=== PATIENT | female | born 1995 | race Caucasian/White ===

== ENCOUNTER 2019-02-27 12:09 | Emergency (ER) | payer MEDICAID ==
[~2019-02-27] VITALS: Ht 157.5 cm; Wt 68.0 kg
[~2019-02-27 12:09] MED LIST: DIPH25CA83 PO; PERM60CR19 TP
[2019-02-27] MEDS ORDERED: normal saline 1000ML IV soln IVB ONE (12:55)
[2019-02-27] MEDS ORDERED: ondansetron/PF 4mg/2ml inj IV ONE (12:55)
[2019-02-27 12:56] VITALS: BP 96/70
[2019-02-27 12:58] LABS: BASOPHILS % (AUTO) 0.3 % (0-1); EOSINOPHILS % (AUTO) 0.1 % (0-6); HEMATOCRIT 43.6 % (35.0-45.0); HEMOGLOBIN 15.4 g/dl (12.0-16.0); LYMPHOCYTES % (AUTO) 10.1 % (21-51); MEAN CORPUSCULAR HEMOGLOBIN 32.4 PG (27.0-31.0); MEAN CORPUSCULAR HGB CONC 35.2 g/dL (33.0-36.5); MEAN CORPUSCULAR VOLUME 91.9 FL (78-98); MEAN PLATELET VOLUME 10.1 FL (7.4-10.4); MONOCYTES # (AUTO) 0.4 X10'3 (0-0.9); MONOCYTES % (AUTO) 3.9 % (2-12); NEUTROPHILS # (AUTO) 8.7 X10'3 (1.8-7.7); NEUTROPHILS % (AUTO) 85.6 % (42-75); PLATELET COUNT 243 X10'3 (140-440); RED BLOOD COUNT 4.75 X10'6 (4.20-5.60); RED CELL DISTRIBUTION WIDTH 12.4 % (11.5-14.5); WHITE BLOOD COUNT 10.2 X10'3 (4.5-11.0)
[2019-02-27 13:07] LABS: CLARITY,URINE CLOUDY (Clear); COLOR,URINE YELLOW (Yellow); GLUCOSE, URINE NEGATIVE (Neg); KETONES,URINE NEGATIVE (Neg); LEUKOCYTE ESTERASE ,URINE NEGATIVE (Neg); NITRITES, URINE NEGATIVE (Neg); OCCULT BLOOD,URINE NEGATIVE (Neg); PH,URINE >=9.0 (4.8-8.0); PROTEIN,URINE 30 mg/dl (Neg); UROBILINOGEN,URINE 0.2 E.U/dL (0.2-1.0)
[2019-02-27 13:08] LABS: URINE HCG NEGATIVE (NEG)
[2019-02-27 13:11] LABS: ALANINE AMINOTRANSFERASE 33 U/L (12-78); ALBUMIN 4.2 G/DL (3.4-5.0); ALKALINE PHOSPHATASE 136 IU/L (46-116); ANION GAP 11 (8-16); ASPARTATE AMINO TRANSFERASE 15 U/L (10-37); BILIRUBIN,TOTAL 0.3 MG/DL (0.1-1.0); BLOOD UREA NITROGEN 12 MG/DL (7-18); BUN/CREATININE RATIO 16.7 (6.6-38.0); CALCIUM 9.5 MG/DL (8.5-10.1); CHLORIDE 106 MMOL/L (99-107); CREATININE 0.72 MG/DL (0.40-0.90); GLUCOSE 110 MG/DL (70-104); POTASSIUM 4.2 MMOL/L (3.5-5.1); SODIUM 143 MMOL/L (135-145); TOTAL CARBON DIOXIDE 26.5 MMOL/L (24-32); TOTAL PROTEIN 8.3 G/DL (6.4-8.2); eGFR > 90 ML/MIN
[2019-02-27 13:28] LABS: UA COLLECTION TYPE CLN CATCH MIDSTREAM
[2019-02-27 13:31] LABS: SQUAMOUS EPITHELIAL CELL,UR MODERATE /LPF (FEW)
[2019-02-27 13:32] LABS: BACTERIA,URINE NONE SEEN /HPF (Neg); MUCUS STRANDS MODERATE /LPF (Neg); RBC,URINE 0-2 /HPF (0-2); WBC,URINE 0-4 /HPF (0-4)
[2019-02-27] MEDS ORDERED: PROM12.512 PO (13:36)
== END 2019-02-27 13:58 | disposition home or self-care (01) ==
LOC: ER 12:09
DX: E86.0 Dehydration (principal); F12.90 Cannabis use, unspecified, uncomplicated; Z79.899 Other long term (current) drug therapy
CPT/HCPCS: 36415; 80053; 81001; 81025; 85025; 85610; 96361; 96374; 99283; J2405; J7030

== ENCOUNTER 2019-11-15 06:53 | Emergency (ER) | payer MEDICAID ==
[~2019-11-15] VITALS: Ht 157.5 cm; Wt 77.3 kg
[~2019-11-15 06:53] MED LIST changes: +PROM12.512 PO
[2019-11-15] MEDS ORDERED: ondansetron/PF 4mg/2ml inj IV ONE (07:15)
[2019-11-15] MEDS ORDERED: pantoprazole 40 MG vial IV ONE (07:15)
[2019-11-15] MEDS ORDERED: normal saline 1000ML IV soln IVB ONE (07:15)
[2019-11-15 07:52] LABS: BASOPHILS % (AUTO) 0.4 % (0-1); EOSINOPHILS # (AUTO) 0.3 X10'3 (0-0.9); EOSINOPHILS % (AUTO) 3.4 % (0-6); HEMATOCRIT 41.1 % (35.0-45.0); LYMPHOCYTES # (AUTO) 1.6 X10'3 (1.1-4.8); LYMPHOCYTES % (AUTO) 16.4 % (21-51); MEAN CORPUSCULAR HEMOGLOBIN 31.2 PG (27.0-31.0); MEAN CORPUSCULAR HGB CONC 34.2 g/dL (33.0-36.5); MEAN CORPUSCULAR VOLUME 91.3 FL (78-98); MEAN PLATELET VOLUME 9.5 FL (7.4-10.4); MONOCYTES # (AUTO) 0.9 X10'3 (0-0.9); MONOCYTES % (AUTO) 9.6 % (2-12); NEUTROPHILS # (AUTO) 6.9 X10'3 (1.8-7.7); NEUTROPHILS % (AUTO) 70.2 % (42-75); PLATELET COUNT 232 X10'3 (140-440); RED CELL DISTRIBUTION WIDTH 12.7 % (11.5-14.5); WHITE BLOOD COUNT 9.8 X10'3 (4.5-11.0)
[2019-11-15 08:01] LABS: ALANINE AMINOTRANSFERASE 28 U/L (12-78); ALBUMIN 3.8 G/DL (3.4-5.0); ALBUMIN/GLOBULIN RATIO 1.1 (1.1-1.5); ALKALINE PHOSPHATASE 86 IU/L (46-116); ANION GAP 9 (8-16); ASPARTATE AMINO TRANSFERASE 21 U/L (10-37); BILIRUBIN,TOTAL 0.3 MG/DL (0.1-1.0); BLOOD UREA NITROGEN 12 MG/DL (7-18); BUN/CREATININE RATIO 14.3 (6.6-38.0); CALCIUM 8.5 MG/DL (8.5-10.1); CHLORIDE 107 MMOL/L (99-107); CREATININE 0.84 MG/DL (0.40-0.90); GLUCOSE 113 MG/DL (70-104); LIPASE 69 U/L (73-393); POTASSIUM 3.8 MMOL/L (3.5-5.1); SODIUM 139 MMOL/L (135-145); TOTAL CARBON DIOXIDE 23.2 MMOL/L (24-32); TOTAL PROTEIN 7.3 G/DL (6.4-8.2); eGFR 84 ML/MIN
[2019-11-15] MEDS ORDERED: PANT-47 PO (08:19)
[2019-11-15] MEDS ORDERED: mag hydrox/Alum hydrox/simeth 30ml oral suspension PO ONE (08:20)
[2019-11-15] MEDS ORDERED: LIDOcaine Viscous 15ml cup MM ONE (08:20)
[2019-11-15 08:25] LABS: HCG SERUM QL NEGATIVE
[2019-11-15 08:43] VITALS: BP 103/62
== END 2019-11-15 08:46 | disposition home or self-care (01) ==
LOC: ER 06:53
DX: R07.89 Other chest pain (principal)
CPT/HCPCS: 36415; 71046; 80053; 83690; 84703; 85025; 93005; 96374; 96375; 99285; C9113; J2405; J7030; 96361; 99284

== ENCOUNTER 2022-01-06 09:07 | Emergency (ER) | payer MEDICAID ==
[~2022-01-06] VITALS: Ht 157.5 cm; Wt 77.3 kg
[~2022-01-06 09:07] MED LIST changes: +PANT-47 PO
[2022-01-06 09:11] VITALS: BP 123/87
[2022-01-06] MEDS ORDERED: dexamethasone sod phosphate 10mg/ml inj PO STA (10:18)
== END 2022-01-06 11:13 | disposition home or self-care (01) ==
LOC: ER 09:10
DX: J02.9 Acute pharyngitis, unspecified (principal); B34.9 Viral infection, unspecified
CPT/HCPCS: 99283; J1100

== ENCOUNTER 2025-04-21 15:17 | Emergency (ER) | payer MEDICAID ==
[~2025-04-21] VITALS: Ht 157.5 cm; Wt 67.8 kg
[~2025-04-21 15:17] MED LIST changes: -PERM60CR19 TP; +PERM60CR27 TP
[2025-04-21 15:22] VITALS: TEMP 97.3
--- NOTE | 2025-04-21 15:25 | Physician Documentation ---
History of Present Illness ~ Chief Complaint: Complications Stated Complaint: ABDOMINAL PAIN Time Seen by MD: 15:30 Primary Medical Doctor: N[place] HPI 30-year-old female, reports that she is eight weeks , sees outside property agent in [facility]. For the last several days, she has had issues with nausea, vomiting, diarrhea, vaginal bleeding, abdominal pain and cramping. Denies chills or fever. Medication Reconciliation Allergies: Coded Allergies: No Known Allergies (Unverified , 04/21/25) Scheduled Pantoprazole Sodium (PROTONIX tablet), 1 TAB PO DAILY Permethrin 5% Cream* (Elimite 5% Cream*), 1 APPLIC TP ONCE Scheduled PRN Diphenhydramine Hcl (Benadryl), 25 MG PO Q4HPRN PRN for itching Promethazine Hcl (Phenergan), 1 TAB PO Q6H PRN for nausea/vomiting Past Medical History Past Medical History: Thyroid (unspecified) Past Surgical History: no surgical history Alcohol Use: Rarely Drug Use: none Lives In: Home Occupation: employed Review of Systems ROS As stated above in the HPI, otherwise all systems are reviewed and negative. Physical Exam Physical Exam Physical Exam General: Alert, no apparent distress. Neck: Full range of motion. Respiratory: Lungs clear, no respiratory distress. Chest: No accessory muscle use. Cardiovascular: Regular rate and rhythm, no murmurs. Gastrointestinal: Soft, nontender, nondistended. Bowels sounds present. Extremities: Normal range of motion, no deformity. Neurologic: Oriented x4. Psychiatric: Normal mood and affect. Skin: Normal color, warm and dry. No edema, no ecchymosis. Progress Progress Note 1559: [email or web address] reports that fetus measures 8 weeks with HR of 176. Estimated due date 12/01/25. Results/Orders Results/Orders Orders - ANTONIETA AGUIRRE [employer]TER Urinalysis, Cult If Indicated (04/21/25 15:25) BMP (04/21/25 15:25) Hcg Serum Qt (04/21/25 15:25) US OB (04/21/25 15:25) Completed Orders - ANTONIETA AGUIRRE NP Abo/Rh (04/21/25 15:25) Ondansetron Disint. Tablet (Zofran Odt T (04/21/25 15:35) US OB (04/21/25 15:25) Cbc/Diff (04/21/25 15:58) Medications Received in ER Medications (Trade) Dose Ordered Sig/Michel Route PRN Reason Start Time Stop Time Status Last Admin Dose Admin (Zofran ODT tablet) 4 mg ONCE ONCE PO 04/21/25 15:35 04/21/25 15:36 DC 04/21/25 15:54 4 MG Vital Signs 04/21/25 04/21/25 04/21/25 15:22 15:37 15:38 Temp 97.3 Pulse 68 57 Resp 18 14 14 B/P (MAP) 119/73 110/76 (87) Pulse Ox 100 100 O2 Flow Rate 0 0 Laboratory Tests Test 04/21/25 15:43 04/21/25 16:07 CBC Comment Sodium Level 137 Chloride Level 102 Carbon Dioxide Level 30.1 Anion Gap 5 L Blood Urea Nitrogen 10 Creatinine 0.64 Estimated GFR/1.73 m2 > 90 BUN/Creatinine Ratio 15.6 Glucose Level 91 Calcium Level 8.1 L Albumin 3.4 Chemistry Comments White Blood Count 6.2 Red Blood Count 3.84 L Hemoglobin 12.0 Hematocrit 35.0 Mean Corpuscular Volume 91.1 Mean Corpuscular Hemoglobin 31.1 H Mean Corpuscular Hemoglobin Concent 34.1 Red Cell Distribution Width 13.2 Platelet Count 192 Mean Platelet Volume 9.9 Neutrophils (%) (Auto) 65.9 Lymphocytes (%) (Auto) 17.2 L Monocytes (%) (Auto) 12.4 H Eosinophils (%) (Auto) 4.3 Basophils (%) (Auto) 0.2 Neutrophils # (Auto) 4.1 Lymphocytes # (Auto) 1.1 Monocytes # (Auto) 0.8 Eosinophils # (Auto) 0.3 Basophils # (Auto) 0.0 EKG/XRAY/CT/US/VASC/MRI Ultrasound : [facility] [address], [place], [place] - [address] ULTRASOUND Patient: BRAYDEN ELLIS Medical Record: [id number] [facility] : 1995, Age: 30 Sex: Female Location: ER Patient Status: REG ER Service Date/Time: 04/21/251524 Ordering Physician: ANTONIETA AGUIRRE NP Exam: US OB OB ULTRASOUND <14 WEEKS: HISTORY: threatened miscarriage, r/o ectopic TECHNIQUE: Multiple real-time grayscale sonographic images of the pelvis with duplex Doppler color flow, spectral and M-mode analysis. TRANSDUCERS: Transabdominal COMPARISON: None FINDINGS: The uterus measures 8.7 x 6.1 x 6.2 cm The cervix is not visualized Right ovary measures 3.4 x 2.1 x 2.4 cm with normal Doppler color flow. Left ovary measures 2.6 x 1.7 x 1.5 cm with normal Doppler color flow. IUP single fetus at 8 weeks and 0 days average ultrasound age based on mean crown-rump length of 1.5 cm and gestational sac size of 3.1 cm heart rate detected at 176 beats per minute. Yolk sac is present. Amniotic fluid is subjectively within normal limits Lucy-gestational space: Unremarkable IMPRESSION: IUP single live fetus 8 weeks and 0 days AUA corresponding to an ASH of 12/01/2025. No acute abnormality detected. Electronically Signed by:FAMILIA LANIER MD Date & Time: 04/21/251619 Dictated by: FAMILIA LANIER MD Dictation date and time: 04/21/251619 Primary Care Provider: NO PRIMARY CARE PROVIDER cc: ANTONIETA AGUIRRE NP ~ Medical Decision Making Additional information obtaine: N/A Findings Patient is good historian. Differential Dx:Considerations: Include: -complete, - incomplete, -inevitable, -missed, -threatened Additional Comment Most Likely Diagnoses: Threatened (early loss): First-trimester vaginal bleeding and cramping are classic for threatened . Nausea and vomiting are common in early , but diarrhea is less typical. The risk of miscarriage increases with both bleeding and cramping present.[1-2] Subchorionic hematoma: This is a common cause of first-trimester bleeding. While most cases resolve, the combination of bleeding and cramping increases the risk of miscarriage.[2] Gastroenteritis (infectious): Diarrhea, nausea, and vomiting may be due to a viral or bacterial GI infection, which can coexist with -related symptoms.[3] Hyperemesis gravidarum or normal early- nausea: Severe, persistent vomiting may indicate hyperemesis gravidarum, but diarrhea and bleeding are not typical features.[4] Urinary tract infection: UTI or early pyelonephritis can present with GI symptoms and may trigger uterine irritability and bleeding, though fever and urinary symptoms are usually present.[5] Most Important Not to Miss Diagnoses: Ectopic : Must be ruled out in any patient with bleeding and abdominal pain. Ectopic can present with GI symptoms and is life- threatening if ruptured. Transvaginal ultrasound and serial ?-hCG are essential.[1] Septic (infected) : Infection after early loss or retained products can cause abdominal pain, bleeding, GI symptoms, and sepsis. Look for fever, uterine tenderness, and foul discharge. CBC, blood cultures, and pelvic ultrasound are indicated.[6] Molar (hydatidiform) : Presents with vaginal bleeding, excessive nausea/vomiting, and sometimes diarrhea. Ultrasound may show a "snowstorm" pattern; ?-hCG is markedly elevated.[7] Departure Time of Disposition: 17:05 Disposition: 01 HOME / SELF CARE / HOMELESS Impression: Primary Impression: Complication of Condition: Stable Discharge Instructions: Threatened Miscarriage Additional Instructions: Ultrasound showed a fetus at eight weeks with a heart rate of 176. Estimated due date is 12/01/2025. You are A positive. Your hemoglobin was 12 with a hematocrit of 35. HCG pending at time of discharge. Your fruit picker machine operator can obtain this from your ER visit records. Return if worse, otherwise f/u with your fruit picker machine operator. Referrals: NO PRIMARY CARE PROVIDER (PCP) Education Educated: Patient Educated regarding: diagnosis, treatment, prognosis, need for follow up Signature Scribe Signature: x Attestation: The note accurately reflects work and decisions made by me.Antonieta Boone NP 04/21/25 15:25 ANTONIETA AGUIRRE NP Apr 21, 2025 15:25
[2025-04-21 15:37] VITALS: BP 110/76; PULSE 57; O2SAT 100
[2025-04-21 15:38] VITALS: RESP 14
[2025-04-21] MEDS: ondansetron 4mg rapidly disintigrating tab PO ONE (15:54)
--- NOTE | 2025-04-21 16:22 | RADIOLOGY REPORT ---
OB ULTRASOUND <14 WEEKS: HISTORY: threatened miscarriage, r/o ectopic TECHNIQUE: Multiple real-time grayscale sonographic images of the pelvis with duplex Doppler color flow, spectral and M-mode analysis. TRANSDUCERS: Transabdominal COMPARISON: None FINDINGS: The uterus measures 8.7 x 6.1 x 6.2 cm The cervix is not visualized Right ovary measures 3.4 x 2.1 x 2.4 cm with normal Doppler color flow. Left ovary measures 2.6 x 1.7 x 1.5 cm with normal Doppler color flow. IUP single fetus at 8 weeks and 0 days average ultrasound age based on mean crown-rump length of 1.5 cm and gestational sac size of 3.1 cm heart rate detected at 176 beats per minute. Yolk sac is present. Amniotic fluid is subjectively within normal limits Lucy-gestational space: Unremarkable IMPRESSION: IUP single live fetus 8 weeks and 0 days AUA corresponding to an ASH of 12/01/2025. No acute abnormality detected.
[2025-04-21 16:23] LABS: MEAN PLATELET VOLUME 9.9 FL (7.4-10.4); RED CELL DISTRIBUTION WIDTH 13.2 % (11.5-14.5)
[2025-04-21 16:54] LABS: CREATININE 0.64 MG/DL (0.40-0.90); TOTAL CARBON DIOXIDE 30.1 MMOL/L (24-32); eCRCL 103 ML/MIN; eGFR > 90 ML/MIN
== END 2025-04-21 17:18 | disposition home or self-care (01) ==
LOC: ER 15:19
DX: O21.9 Vomiting of pregnancy, unspecified (principal); Z3A.08 8 weeks gestation of pregnancy; Z79.899 Other long term (current) drug therapy
CPT/HCPCS: 36415; 76801; 80048; 84702; 85025; 86900; 86901; 99284